=== PATIENT | male | born 1955 | race Caucasian/White ===

== ENCOUNTER 2016-10-30 12:21 | Observation (INO) | payer BC ==
[2016-10-30] MEDS ORDERED: NS 1000 ML 500 ML IV ONE (14:01)
[2016-10-30 14:29] LABS: BASOPHILS % (AUTO) 0.6 % (0.2-1.0); HEMATOCRIT 43.1 % (42.0-54.0); LYMPHOCYTES # (AUTO) 1.2 X10^3/uL (1.3-2.9); LYMPHOCYTES % (AUTO) 35.3 % (21.0-51.0); MEAN CORPUSCULAR HEMOGLOBIN 31.3 pg (27.0-34.0); MEAN CORPUSCULAR HGB CONC 34.8 g/dL (33.0-35.0); MEAN CORPUSCULAR VOLUME 90.1 fL (80.0-100.0); MEAN PLATELET VOLUME 8.5 fL (7.4-11.0); MONOCYTES # (AUTO) 0.4 x10^3/uL (0.3-0.8); MONOCYTES % (AUTO) 11.9 % (0.0-13.0); NEUTROPHILS # (AUTO) 1.8 x10^3/uL (2.2-4.8); NEUTROPHILS % (AUTO) 51.2 % (42.0-75.0); PLATELET COUNT 204 X10^3/uL (150.0-450.0); RED BLOOD COUNT 4.79 X10^6/uL (4.7-6.0); RED CELL DISTRIBUTION WIDTH 13.3 % (11.6-16.5); WHITE BLOOD COUNT 3.5 X10^3/uL (3.6-10.0)
[2016-10-30 14:41] VITALS: BMI 28.6
[2016-10-30 14:50] LABS: ALANINE AMINOTRANSFERASE 46 Units/L (12-78); ALBUMIN 3.7 g/dL (3.4-5.0); ALKALINE PHOSPHATASE 52 Units/L (46-116); ASPARTATE AMINO TRANSFERASE 36 Units/L (15-37); BLOOD UREA NITROGEN 17 mg/dL (7-18); CALCIUM 8.5 mg/dL (8.5-10.1); CARBON DIOXIDE 33.6 mmol/L (21-32); CHLORIDE 103 mmol/L (98-107); CKMB % 0.6 % (<4); COR NA(FOR HYPERGLY) 141 mmol/L (136-145); CREATINE KINASE 254 Units/L (39-308); CREATINE KINASE MB 1.5 ng/mL (0-4.0); CREATININE 1.09 mg/dL (0.70-1.30); GLUCOSE 112 mg/dL (65-99); SODIUM 141 mmol/L (136-145); TOTAL PROTEIN 7.9 g/dL (6.4-8.2); TROPONIN I < 0.02 ng/mL (0-1.5); eGFR BLACK RACES > 60 (>60); eGFR NON BLACK RACES > 60 (>60)
[2016-10-30] MEDS: NS 1000 ML 1,000 ML IV SCH ×3 (15:00→21:39)
--- NOTE | 2016-10-30 15:34 | RAD ---
HISTORY: Shortness of breath Study: PA chest Comparison: None Findings: The trachea is midline. The cardiac silhouette is unremarkable. The lungs are clear without focal infiltrate or effusion. The bony thorax is unremarkable. IMPRESSION: 1. No acute cardiopulmonary disease. Reported By:
--- NOTE | 2016-10-30 15:44 | CT ---
HISTORY: Syncope Study: CT brain without contrast Comparison: None Technique: Multiple axial images of the brain were obtained from the skull base to the vertex without administr ation of IV contrast. Sagittal and coronal reformations were provided. Findings: There is mucosal thickening in the maxillary sinuses without fluid level. There is mucosal thickenin g in the ethmoid sinuses as well. No acute intraparenchymal hemorrhage or mass can be identified. No extra-axial fluid collections ar e seen. No alteration in the attenuation of the brain parenchyma can be identified to suggest acute or subacute ischemic change. The ventricular system is symmetric and nondilated. The extracranial structures are grossly unremarkable. IMPRESSION: 1. No acute intracranial process can be identified. 2. Paranasal sinus disease Reported By:
[2016-10-30] MEDS: LEVAQUIN PREMIX IV 500 MG 500 MG/100 ML BAG IV SCH (16:30)
[2016-10-30] MEDS: ANTIVERT TAB 25 MG PO SCH ×2 (17:22→20:56)
[2016-10-30] MEDS: ZESTRIL TAB 40 MG PO SCH (17:23)
[2016-10-30 18:28] LABS: CKMB % 0.4 % (<4); CREATINE KINASE 239 Units/L (39-308); CREATINE KINASE MB < 1.0 ng/mL (0-4.0); TROPONIN I < 0.02 ng/mL (0-1.5)
[2016-10-30 22:08] LABS: CKMB % 0.4 % (<4); CREATINE KINASE 262 Units/L (39-308); TROPONIN I < 0.02 ng/mL (0-1.5)
[2016-10-31 02:08] LABS: BILIRUBIN,URINE NEGATIVE (NEGATIVE); BLOOD/HEMOGLOBIN,URINE NEGATIVE (NEGATIVE); GLUCOSE, URINE NEGATIVE (NEGATIVE); KETONES,URINE NEGATIVE (NEGATIVE); LEUKOCYTE ESTERASE ,URINE NEGATIVE (NEGATIVE); NITRITES,URINE NEGATIVE (NEGATIVE); PROTEIN,URINE NEGATIVE (NEGATIVE); UROBILINOGEN,URINE NORMAL (NORMAL)
[2016-10-31 02:24] LABS: APPEARANCE,URINE CLEAR (CLEAR); BACTERIA,URINE NEGATIVE /HPF (NEGATIVE); COLOR,URINE YELLOW (YELLOW); RBC,URINE 0-3 /HPF (NEGATIVE); SQUAMOUS EPITHELIAL CELL,UR RARE /HPF (NEGATIVE)
[2016-10-31 06:13] LABS: BASOPHILS % (AUTO) 0.9 % (0.2-1.0); EOSINOPHILS # (AUTO) 0.1 x10^3/uL (0.0-0.2); EOSINOPHILS % (AUTO) 1.8 % (0.9-2.9); HEMATOCRIT 38.1 % (42.0-54.0); HEMOGLOBIN 13.3 g/dL (13.5-18.0); LYMPHOCYTES # (AUTO) 1.4 X10^3/uL (1.3-2.9); MEAN CORPUSCULAR HEMOGLOBIN 31.5 pg (27.0-34.0); MEAN CORPUSCULAR VOLUME 89.9 fL (80.0-100.0); MEAN PLATELET VOLUME 9.1 fL (7.4-11.0); MONOCYTES # (AUTO) 0.3 x10^3/uL (0.3-0.8); MONOCYTES % (AUTO) 10.6 % (0.0-13.0); NEUTROPHILS # (AUTO) 1.4 x10^3/uL (2.2-4.8); NEUTROPHILS % (AUTO) 42.7 % (42.0-75.0); PLATELET COUNT 158 X10^3/uL (150.0-450.0); RED BLOOD COUNT 4.24 X10^6/uL (4.7-6.0); RED CELL DISTRIBUTION WIDTH 13.2 % (11.6-16.5); WHITE BLOOD COUNT 3.2 X10^3/uL (3.6-10.0)
--- NOTE | 2016-10-31 06:28 | RAD ---
HISTORY: Shortness of breath Study: Chest one view Comparison: October 30, 2016 Findings: The trachea is midline. The cardiac silhouette is unremarkable. The lungs are clear without focal infiltrate or effusion. The bony thorax is unremarkable. IMPRESSION: 1. No acute cardiopulmonary disease. Reported By:
[2016-10-31 06:37] LABS: ALANINE AMINOTRANSFERASE 41 Units/L (12-78); ALBUMIN 2.9 g/dL (3.4-5.0); ALKALINE PHOSPHATASE 45 Units/L (46-116); ASPARTATE AMINO TRANSFERASE 35 Units/L (15-37); BLOOD UREA NITROGEN 13 mg/dL (7-18); CALCIUM 7.6 mg/dL (8.5-10.1); CARBON DIOXIDE 28.6 mmol/L (21-32); CHLORIDE 107 mmol/L (98-107); COR CA(FOR HYPOALB) 8.5 mg/dL (8.5-10.1); CREATININE 0.93 mg/dL (0.70-1.30); GLUCOSE 87 mg/dL (65-99); SODIUM 144 mmol/L (136-145); TOTAL PROTEIN 6.4 g/dL (6.4-8.2); eGFR BLACK RACES > 60 (>60); eGFR NON BLACK RACES > 60 (>60)
[2016-10-31] MEDS: LEVAQUIN PREMIX IV 500 MG 500 MG/100 ML BAG IV SCH (09:27)
[2016-10-31] MEDS: ANTIVERT TAB 25 MG PO SCH ×2 (09:28→20:31)
[2016-10-31] MEDS: ZESTRIL TAB 40 MG PO SCH (09:28)
--- NOTE | 2016-10-31 11:01 | DR.UPDATE ---
H&P Update History and Physical Update: WAS SEEN IN OUR OFFICE ON 10/30/16. A H&P WAS COMPLETED PRIOR TO ADMISSION. PATIENT HAS BEEN SEEN AND EXAMINED WITH NO CHANGES NOTED. Changes noted: NO Yes with the following:
[2016-10-31] MEDS: NS 1000 ML 1,000 ML IV SCH ×3 (11:22→21:17)
--- NOTE | 2016-10-31 16:39 | PCM.PROG ---
Progress Note - Progress Note for Day of Date: 10/31/16 - Subjective Subjective: IS ALERT AND ORIENTED, LYING IN BED ON MORNING ROUNDS. IS AT BEDSIDE. HE REPORTS WEAKNESS, BUT DENIES SHORTNESS OF BREATH OR DIZZINESS ON ROUNDS. VITALS THIS AM ARE 98.1-55-20-99%, 164/86. CBC REPORTS WBC 3.2, RBC 4.24, HGB 13.3, HCT 38.1. CMP REPORTS SODIUM 144, POTASSIUM 3.8, BUN 13 , CREATININE 0.93, CALCIUM 7.6, ALKALINE PHOSPHATASE 45, ALBUMIN 2.9. WE OBTAINED A CHEST XRAY, IT REPORTED NEGATIVE. BRAIN CT NEGATIVE FOR ACUTE INTRACRANIAL ABNORMALITY, ECHO REPORTS EJECTION FRACTION OF 69%. WE WILL CONTINUE WITH CURRENT PLAN OF CARE, RECHECK LABS, AND FOLLOW UP WITH PATIENT IN AM. - Past Medical Family Social History Past Med/Fam/Surg Hx: No changes since H&P Allergies: Allergies No Known Drug Allergies Allergy (Verified 10/30/16 13:59) - Review of Systems ROS: No change since H&P - Vital Signs and I&O's Vital Signs: Temperature 99.3 F Pulse Rate [Left Brachial] 53 Respiratory Rate 18 Blood Pressure [Left Arm] 158/75 O2 Sat by Pulse Oximetry 95 Intake and Output: Intake & Output 10/29/16 10/30/16 10/31/16 11/01/16 11:59 11:59 11:59 11:59 Intake Total 2220 Output Total 0 Balance 2220 - Physical Exam Oriented: Normal Eyes: Normal Ear: Normal Nose: Normal Throat: Normal Respiratory: Normal Cardiovascular: Normal : Normal Auscultation: Bowel Sounds: Normal Palpation: Normal Tenderness: Normal Skin: Normal Musculoskeletal: Normal Psychiatric: Normal Mood Description: Calm Affect: Normal Speech Pattern: Clear, Appropriate - Laboratory and Diagnostics Result Diagrams: 10/31/16 03:35 10/31/16 03:35 Labs: Laboratory WBC 3.2 X10^3/uL (3.6-10.0) L 10/31/16 03:35 RBC 4.24 X10^6/uL (4.7-6.0) L 10/31/16 03:35 Hgb 13.3 g/dL (13.5-18.0) L 10/31/16 03:35 Hct 38.1 % (42.0-54.0) L 10/31/16 03:35 MCV 89.9 fL (80.0-100.0) 10/31/16 03:35 MCH 31.5 pg (27.0-34.0) 10/31/16 03:35 MCHC 35.0 g/dL (33.0-35.0) 10/31/16 03:35 RDW 13.2 % (11.6-16.5) 10/31/16 03:35 Plt Count 158 X10^3/uL (150.0-450.0) 10/31/16 03:35 MPV 9.1 fL (7.4-11.0) 10/31/16 03:35 Neut % 42.7 % (42.0-75.0) 10/31/16 03:35 Lymph % 44.0 % (21.0-51.0) 10/31/16 03:35 [place] % 10.6 % (0.0-13.0) 10/31/16 03:35 Eos % 1.8 % (0.9-2.9) 10/31/16 03:35 Baso % 0.9 % (0.2-1.0) 10/31/16 03:35 Neut # 1.4 x10^3/uL (2.2-4.8) L 10/31/16 03:35 Lymph # 1.4 X10^3/uL (1.3-2.9) 10/31/16 03:35 [place] # 0.3 x10^3/uL (0.3-0.8) 10/31/16 03:35 Eos # 0.1 x10^3/uL (0.0-0.2) 10/31/16 03:35 Baso # 0.0 X10^3/uL (0.0-0.1) 10/31/16 03:35 Absolute Nucleated RBC 0.6 /100WBC 10/31/16 03:35 Sodium 144 mmol/L (136-145) 10/31/16 03:35 Corrected Sodium TNP 10/31/16 03:35 Potassium 3.8 mmol/L (3.5-5.1) 10/31/16 03:35 Chloride 107 mmol/L (98-107) 10/31/16 03:35 Carbon Dioxide 28.6 mmol/L (21-32) 10/31/16 03:35 BUN 13 mg/dL (7-18) 10/31/16 03:35 Creatinine 0.93 mg/dL (0.70-1.30) 10/31/16 03:35 Est GFR (MDRD) Af Amer > 60 (>60) 10/31/16 03:35 Est GFR (MDRD) Non-Af > 60 (>60) 10/31/16 03:35 Glucose 87 mg/dL (65-99) 10/31/16 03:35 Calcium 7.6 mg/dL (8.5-10.1) L 10/31/16 03:35 Corrected Calcium 8.5 mg/dL (8.5-10.1) 10/31/16 03:35 Total Bilirubin 0.40 mg/dL (0.2-1.0) 10/31/16 03:35 AST 35 Units/L (15-37) 10/31/16 03:35 ALT 41 Units/L (12-78) 10/31/16 03:35 Alkaline Phosphatase 45 Units/L (46-116) L 10/31/16 03:35 Creatine Kinase 262 Units/L (39-308) 10/30/16 21:40 CK-MB (CK-2) 1.0 ng/mL (0-4.0) 10/30/16 21:40 CK/CKMB % Calc 0.4 % (<4) 10/30/16 21:40 Troponin I < 0.02 ng/mL (0-1.5) 10/30/16 21:40 Total Protein 6.4 g/dL (6.4-8.2) 10/31/16 03:35 Albumin 2.9 g/dL (3.4-5.0) L 10/31/16 03:35 Globulin 3.5 g/dL (2.5-4.5) 10/31/16 03:35 Albumin/Globulin Ratio 0.8 Ratio (1.1-2.1) L 10/31/16 03:35 Specimen Type Clean catch urine 10/31/16 01:58 Urine Color Yellow (YELLOW) 10/31/16 01:58 Urine Appearance Clear (CLEAR) 10/31/16 01:58 Urine pH 6.0 (5.0 - 8.0) 10/31/16 01:58 Ur Specific [place] 1.020 (1.000-1.030) 10/31/16 01:58 Urine Protein Negative (NEGATIVE) 10/31/16 01:58 Urine Glucose (UA) Negative (NEGATIVE) 10/31/16 01:58 Urine Ketones Negative (NEGATIVE) 10/31/16 01:58 Urine Occult Blood Negative (NEGATIVE) 10/31/16 01:58 Urine Nitrite Negative (NEGATIVE) 10/31/16 01:58 Urine Bilirubin Negative (NEGATIVE) 10/31/16 01:58 Urine Urobilinogen Normal (NORMAL) 10/31/16 01:58 Ur Leukocyte Esterase Negative (NEGATIVE) 10/31/16 01:58 Urine RBC 0-3 /HPF (NEGATIVE) 10/31/16 01:58 Urine WBC 0-3 /HPF (NEGATIVE) 10/31/16 01:58 Ur Squamous Epith Cells Rare /HPF (NEGATIVE) 10/31/16 01:58 Urine Bacteria Negative /HPF (NEGATIVE) 10/31/16 01:58 Ur Culture Indicated? No/not indicated 10/31/16 01:58 - Plan (1) Weakness generalized Status: Acute Plan: IV FLUIDS, CONTINUE TO MONITOR (2) BPPV (benign paroxysmal positional vertigo) Status: Acute Qualifiers: Laterality: unspecified laterality Qualified Code(s): H81.10 - Benign paroxysmal vertigo, unspecified ear Plan: MECLIZINE 25MG BID, CONTINUE TO MONITOR (3) Shortness of breath Status: Acute Plan: SUPPLEMENTAL OXYGEN NEEDED, CONTINUE TO MONITOR (4) Hypertension Status: Acute Qualifiers: Hypertension type: essential hypertension Qualified Code(s): I10 - Essential (primary) hypertension Plan: CONTINUE LISINOPRIL, CONTINUE TO MONITOR
[2016-11-01] MEDS: NS 1000 ML 1,000 ML IV SCH (05:09)
[2016-11-01 05:55] LABS: BASOPHILS % (AUTO) 0.5 % (0.2-1.0); EOSINOPHILS # (AUTO) 0.1 x10^3/uL (0.0-0.2); EOSINOPHILS % (AUTO) 3.3 % (0.9-2.9); HEMATOCRIT 36.1 % (42.0-54.0); LYMPHOCYTES # (AUTO) 1.7 X10^3/uL (1.3-2.9); LYMPHOCYTES % (AUTO) 48.7 % (21.0-51.0); MEAN CORPUSCULAR HEMOGLOBIN 32.5 pg (27.0-34.0); MEAN CORPUSCULAR HGB CONC 35.9 g/dL (33.0-35.0); MEAN CORPUSCULAR VOLUME 90.5 fL (80.0-100.0); MEAN PLATELET VOLUME 9.2 fL (7.4-11.0); MONOCYTES # (AUTO) 0.4 x10^3/uL (0.3-0.8); MONOCYTES % (AUTO) 10.5 % (0.0-13.0); NEUTROPHILS # (AUTO) 1.3 x10^3/uL (2.2-4.8); PLATELET COUNT 149 X10^3/uL (150.0-450.0); RED BLOOD COUNT 3.99 X10^6/uL (4.7-6.0); RED CELL DISTRIBUTION WIDTH 13.1 % (11.6-16.5); WHITE BLOOD COUNT 3.5 X10^3/uL (3.6-10.0)
[2016-11-01 06:04] LABS: ALANINE AMINOTRANSFERASE 43 Units/L (12-78); ALBUMIN 2.8 g/dL (3.4-5.0); ALKALINE PHOSPHATASE 46 Units/L (46-116); ASPARTATE AMINO TRANSFERASE 34 Units/L (15-37); BLOOD UREA NITROGEN 11 mg/dL (7-18); CALCIUM 7.6 mg/dL (8.5-10.1); CARBON DIOXIDE 29.1 mmol/L (21-32); CHLORIDE 110 mmol/L (98-107); COR CA(FOR HYPOALB) 8.6 mg/dL (8.5-10.1); CREATININE 0.99 mg/dL (0.70-1.30); GLUCOSE 93 mg/dL (65-99); SODIUM 145 mmol/L (136-145); TOTAL PROTEIN 6.1 g/dL (6.4-8.2); eGFR BLACK RACES > 60 (>60); eGFR NON BLACK RACES > 60 (>60)
--- NOTE | 2016-11-01 06:10 | RAD ---
HISTORY: Shortness of breath Study: Chest one view Comparison: October 31, 2016 Findings: The trachea is midline. The cardiac silhouette is minimally enlarged. No congestive heart failure i s noted.. The lungs are clear without focal infiltrate or effusion. The bony thorax is unremarkabl e. IMPRESSION: 1. Minimal cardiomegaly without congestive heart failure 2. Lungs clear Reported By:
[2016-11-01] MEDS: LEVAQUIN PREMIX IV 500 MG 500 MG/100 ML BAG IV SCH (09:47)
[2016-11-01] MEDS: ZESTRIL TAB 40 MG PO SCH (09:48)
[2016-11-01] MEDS: ANTIVERT TAB 25 MG PO SCH (09:48)
[2016-11-01 10:43] VITALS: BP 173/81
--- NOTE | 2016-11-04 11:50 | DR.CARTERD ---
- Admission Date Date of Admission: 10/30/16 - Admission Diagnoses Admission Diagnosis: (1) Weakness generalized (2) BPPV (benign paroxysmal positional vertigo) (3) Shortness of breath (4) Hypertension - Discharge Date Discharge Date: 11/01/16 - Discharge Diagnoses Discharge Diagnosis: (1) Weakness generalized (2) BPPV (benign paroxysmal positional vertigo) (3) Shortness of breath (4) Hypertension - Hospital Course Hospital Course: was a direct admit from our office with complaints of dizziness. Patient reported that symptoms were acute, constant, loss of balance and a sense of the room spinning. Patient reported that symptoms started 5 days ago. Patient reported that symptoms are exacerbated by exertion, position change and turning of the head. Associated symptoms included fatigue, malaise, ringing in the ears, sinus problems, nasal discharge, productive sputum, chest congestion, chest tightness and dyspnea. Patient reported that he was running a fever at home prior to arrival with max temperature 102.4 and then has been low grade since. Patient was admitted to the hospital for further treatment and evaluation. On day 2 of stay, continued with weakness, but denied shortness of breath or dizziness on rounds. Vitals were 98.1-55-20-99%-164/86. BC REPORTS WBC 3.2, RBC 4.24, HGB 13.3, HCT 38.1. CMP REPORTS SODIUM 144, POTASSIUM 3.8, BUN 13, CREATININE 0.93, CALCIUM 7.6, ALKALINE PHOSPHATASE 45, ALBUMIN 2.9. Chest xray and brain CT negative. ECHO reports ejection fraction of 69%. We continued to monitor patient. On day of discharge, patient is alert and oriented, sitting up in chair. He denies weakness, shortness of breath, or dizziness. Vitals were 98.6-59-20-98%- 173/81. CBC wnl except WBC 3.5, RBC 3.99, HGB 13.0, HCT 36.1. CMP wnl except CHLORIDE 110, CALCIUM 7.6, TOTAL PROTEIN 6.1, ALBUMIN 2.8. Chest xray reported minimal cardiomegaly without CHF, lungs clear. We planned for discharge. Instructions for medications and follow up were discussed with patient and . They both verbalized understanding. Patient discharged to home in stable condition with family. He was given new prescriptions for Meclizine 25mg po BID PRN. He has instructions to follow up in our office, where we will schedule for a nuclear stress test and carotid US. - Discharge Medications Discharge Medications: Lisinopril 40 mg PO HS #0 11/01/16 [Rx] Meclizine HCl [ANTIVERT 25 MG *] 25 mg PO BID PRN #60 tab 11/01/16 [Rx]
== END 2016-11-01 10:50 | disposition home or self-care (01) ==
LOC: UNDOADMOB 12:21 → MED/SURG 12:21
PROVIDERS: ADMIT Internal Medicine; ATTEND Internal Medicine
DX: R55 Syncope and collapse (principal); R53.1 Weakness; E86.0 Dehydration; R42 Dizziness and giddiness; I10 Essential (primary) hypertension; D72.818 Other decreased white blood cell count; Z79.899 Other long term (current) drug therapy; R73.09 Other abnormal glucose; R06.02 Shortness of breath
CPT/HCPCS: 36415; 70450; 71010; 80053; 81001; 82550; 82553; 84484; 85025; 93005; 93306; A4216; A4222; G0378; J1956